=== PATIENT | female | born 1985 | race Hispanic/Latino ===

== ENCOUNTER 2019-10-14 06:27 | Day surgery (SDC) | payer BC ==
[2019-10-07 12:01] LABS: Absolute Lymphocytes (CBC) 2.2 K/uL (0.7-4.9); Basophils % 1.1 % (0-1.3); Hematocrit 37.4 % (36.0-45.0); Lymphocytes % 39.4 % (15.3-44.8); MPV 7.7 fL (7.6-11.3); RBC Red Blood Cell Count 4.04 M/uL (3.86-4.86)
[2019-10-07 12:03] LABS: Urine Appearance CLEAR; Urine Bilirubin NEGATIVE (NEG); Urine Blood NEGATIVE (NEG); Urine Color YELLOW; Urine Glucose NEGATIVE (NEG); Urine Protein NEGATIVE (NEG); Urine Urobilinogen 0.2 mg/dL (0.2-1.0); Urine pH 7.5 (5.0-7.0)
[2019-10-07 12:06] LABS: Urine Microscopic Reflex NO UMIC
[2019-10-14] MEDS ORDERED: SCOPOLAMINE HYDROBROMIDE PATCH TD ONE (06:45)
[2019-10-14] MEDS ORDERED: DIAZEPAM 5 MG TABLET ONE (06:45)
[2019-10-14] MEDS ORDERED: CEFAZOLIN/SWI 2gm 2 GM/20 ML SYR ONE (06:45)
[2019-10-14] MEDS ORDERED: Ringers Lactate 1,000 ML IV ONE ×3 (06:45→08:36)
[2019-10-14 07:00] LABS: Specific Gravity 1.025 (1.005-1.030)
[2019-10-14] MEDS ORDERED: BUPIVACAINE 0.25% PF 30 ML VIAL ONE (07:07)
[2019-10-14] MEDS ORDERED: ROCURONIUM 50 MG/5 ML VIAL IV ONE (07:09)
[2019-10-14] MEDS ORDERED: dexAMETHasone 10 MG/ML VIAL ONE (07:09)
[2019-10-14] MEDS ORDERED: propofoL 200 MG/20 ML VIAL IV ONE (07:09)
[2019-10-14] MEDS ORDERED: NS 0.9% VIAL 20 ML ONE (07:10)
[2019-10-14] MEDS ORDERED: LIDOCAINE 2% MPF 5 ML VIAL ONE (07:10)
[2019-10-14] MEDS ORDERED: FENTANYL CITR 250 MCG/5 ML ONE (07:10)
[2019-10-14] MEDS ORDERED: MIDAZOLAM HCL 2 MG/2 ML INJ ONE (07:10)
[2019-10-14] MEDS ORDERED: ONDANSETRON 4 MG/2 ML VIAL ONE (07:10)
[2019-10-14] MEDS ORDERED: VECURONIUM 10 MG/VIAL IV ONE (07:10)
[2019-10-14] MEDS ORDERED: MEPERIDINE HCL 25 MG/0.5 ML ONE (09:46)
[2019-10-14] MEDS ORDERED: KETOROLAC 30 MG/ML INJ ONE (09:56)
[2019-10-14] MEDS ORDERED: PROMETHAZINE INJ 25 MG/ML AMP ONE (10:47)
[2019-10-14] MEDS: HYDROMORPHONE HCL 1 MG/ML INJ ONE ×4 (10:51→11:10)
[2019-10-14 11:49] VITALS: O2SAT 99
[2019-10-14] MEDS ORDERED: HYDROCODONE/APAP 5/325 MG TAB PO ONE (12:00)
[2019-10-14] MEDS ORDERED: HYDROCODONE/APAP 5/325 MG TAB ONE (12:02)
[2019-10-14 14:56] VITALS: BP 110/65; TEMP 97
--- NOTE | 2019-10-15 04:17 | OP ---
Date of Procedure: 10/14/2019 Surgeon: Rica Schultz MD Electrical Tryout Person: Joy Sparks. Preoperative Diagnoses: Pelvic pain, recurrent menorrhagia. Postoperative Diagnoses: Pelvic pain, recurrent menorrhagia, and hematosalpinges, adhesions of the bladder. Anesthesia: General endotracheal. Estimated Blood Loss: Minimal. Specimens: Bilateral tubes and uterus with cervix. Complications: No complications. Drains: No drains. Condition: Stable. Findings: The proximal part of the tubes appeared to be slightly dilated. There were some adhesions to bowel that had to be taken down in order for me to complete the procedure in the left lower quadr ant, but once these were taken down with sharp dissection, no other abnormality encountered. Indications: Patient is a 33-year-old, who had pelvic pain and menorrhagia. She was evaluated with ultrasound biopsy. Patient with diagnosis of endometritis likely from the IUD. IUD was removed. No need for antibiotics as this did not appear to be an infectious process. GC testing was negative. Ablation versus hysterectomy were reviewed. Patient's age is 33. Other use of hormones was discusse d as well. However, patient was not wanting to do this. She had the IUD and her bleeding did not ge t better. We talked about an alternative of an ablation that will give us some more years; however, there is increased chance of recurrence since she already failed the IUD. We discussed the options o f laparoscopic hysterectomy and bilateral salpingectomy. She was definitive that she was done with c hildbearing and she also had her tubes tied. After listening to all the benefits and risks and alternatives, patient wanted to proceed with total laparoscopic hysterectomy, did not want to try depo or other medical treatment options or a repeat Mi jordana. Description Of Procedure: She was consented and brought to the OR. 2 g of Ancef was given in the pr eop. She was taken back to the OR, placed in supine fashion on the operating table. General anesthe emilia was given, she was placed in dorsal lithotomy position. Pelvic exam was performed. Uterus was f ound to be anteflexed. Abdomen, vulva, vagina, and perineum were prepped and draped in a sterile fashion. Isidro was placed to drain the bladder and attached to cysto tubing for retrograde filling. Then, 10 mm suprapubic and 5 mm left lower quadrant ports were placed under direct vision, and the peritoneal cavity was visual ized. Then, the bowel adhesions were seen in the left lower quadrant. All these were taken down wit h sharp dissection with scissors with good visualization. Then, after exposing all the distal part o f the tubes as well as the uterus itself, position of the ureters was checked. There was no anatomic al distortion of these. 5 mm left lower quadrant, 10 mm suprapubic ports were placed. Local anesthetic was given prior to pl acing these ports. Then, hysterectomy was started. The utero-ovarian ligament, mesosalpinx, tube, b road ligament, round ligament were all cut anterior and posteriorly. The broad ligament was separate d anterior to raise the bladder flap and posteriorly to the expose uterosacral ligament and at left u reter dissected off this side. Similar dissection was performed on the opposite side as well. Then, the vessels were skeletonized and taken down. vesicovaginal space was entered anteriorly and pushed with the bladder all the way inferiorly. Then, vessels were taken down on both sides using the bipo lar and then the LigaSure. Cardinal ligaments were also cauterized and taken down with the help of t he bipolar basket tip or the LigaSure itself. Circumferential colpotomy performed with the monopolar hook blade and the specimen was removed through the vagina. Distal parts of the tubes were dissecte d with the help of the LigaSure and retrieved as well. Thorough irrigation and suction were performe d. Both the ovaries appeared to be intact and vascular. No evidence of any endometriosis on close e xamination of the entire pelvic cavity and the bladder. Gas was desufflated after the trocars were r emoved under direct vision and fascia injected with Marcaine. Then, at the umbilicus as well, the ga s was desufflated. Umbilical port was removed and fascia closed with the help of the 0 Vicryl tag gomez tures sewn to each other and then suprapubic fascial incision closed with the help of [id number] 0 Vicryl stitch. All the skin incisions closed with interrupted 4-0 Vicryl. Instrument, needle, an d sponge counts were done and were correct at the end of the case. All the vaginal counts were done and were correct. She will follow up with me in 1 week. LETICIA/AIDA Voice ID: [id number] Report ID: [id number]
== END 2019-10-14 14:05 | disposition home or self-care (01) ==
LOC: OR 06:27
PROVIDERS: ATTEND Obstetrics & Gynecology
PROC: 0UT74ZZ Resection of Bilateral Fallopian Tubes, Percutaneous Endoscopic Approach (ICD-10-PCS; 2019-10-14)
PROC: 0UT94ZZ Resection of Uterus, Percutaneous Endoscopic Approach (ICD-10-PCS; principal; 2019-10-14 07:30)
DX: N92.1 Excessive and frequent menstruation with irregular cycle (principal); R10.2 Pelvic and perineal pain; N83.6 Hematosalpinx; F32.0 Major depressive disorder, single episode, mild
CPT/HCPCS: 85025; 36415; 86900; 86850; 81025; 86901; 88307; 81003; 58571; J2704; J2550; J2250; J3010; J1100; J2175; J1170 ×2; J0690; J7120 ×3; J2405

== ENCOUNTER 2020-01-19 06:22 | Emergency (ER) | payer BC, OTHER ==
[2020-01-19] MEDS ORDERED: DERMABOND SKIN ADHESIVE TOP ONE (06:49)
[2020-01-19] MEDS ORDERED: TETANUS & DIPHTHERIA TOX,ADULT 0.5 ML VIAL ONE (06:49)
[2020-01-19] MEDS ORDERED: LIDOCAINE VISCOUS 2% SOLN 15 ML UDC ONE (06:49)
[2020-01-19] MEDS ORDERED: LIDOCAINE JELLY 2%- 5 ML TUBE ONE (06:51)
--- NOTE | 2020-01-19 07:58 | RAD REPORT ---
EXAM DESCRIPTION: CT - Facial Bones W/ Mpr - 01/19/2020 7:08 am CLINICAL HISTORY: Facial injury status post fall with facial pain COMPARISON: None TECHNIQUE: Computed axial tomography of the face was obtained. Coronal and sagittal reconstruction w as performed. All CT scans are performed using dose optimization technique as appropriate and may include automated exposure control or mA/KV adjustment according to patient size. FINDINGS: A fracture is not seen. A TMJ dislocation is not noted. The globes are intact. Fluid within the sinuses is not seen. IMPRESSION: Negative for a facial fracture.
--- NOTE | 2020-01-19 08:02 | RAD REPORT ---
EXAM DESCRIPTION: CT - Head C Spine Mpr Wo Con - 01/19/2020 7:08 am CLINICAL HISTORY: Head and neck injury status post fall. Head and neck pain COMPARISON: None. TECHNIQUE: Computed axial tomography of the head and cervical spine was obtained. Sagittal and coronal reconstruction was performed. All CT scans are performed using dose optimization technique as appropriate and may include automated exposure control or mA/KV adjustment according to patient size. FINDINGS: An intracranial bleed is not seen. The ventricles are normal in caliber. An extra-axial fl uid collection is not noted.Fluid within the visualized sinuses and mastoids is not seen A cervical fracture is not visualized. No dislocation is noted. IMPRESSION: No acute intracranial abnormality is seen. A cervical fracture is not visualized. If the patient continues to have symptoms to suggest intracra nial /spinal cord pathology then MRI would be recommended
--- NOTE | 2020-01-19 08:08 | ER ---
Nurse's Notes [facility] Name: Fatou Velez Age: 34 yrs Sex: Female : 1985 Arrival Date: 01/19/2020 Time: 06:25 Bed 5 Private MD: Diagnosis: Fall on same level from slipping, tripping and stumbling with subsequent striking against object;Crushing injury of head;Laceration without foreign body of other part of head-chin Presentation: 01/18 06:35 Chief complaint: Patient states: tripped over toy on ground, hit chin on counter top, + lp1 LOC per ; Patient has laceration to bottom of chin, complaint of pain to lower jaw and headache;. Care prior to arrival: None. Mechanism of Injury: Fall from standing position. 06:35 Acuity: GLENIS 3 lp1 06:35 Method Of Arrival: Wheelchair lp1 06:37 Coronavirus screen: Patient denies fever greater than 100.4F, cough, shortness of lp1 breath, or difficulty breathing. Ebola Screen: No symptoms or risks identified at this time. Initial Sepsis Screen: Does the patient meet any 2 criteria? No. Patient's initial sepsis screen is negative. Does the patient have a suspected source of infection? No. Patient's initial sepsis screen is negative. Risk Assessment: Do you want to hurt yourself or someone else? Patient reports no desire to harm self or others. Onset of symptoms was January 19, 2020 at 05:30. 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 - Social history:: Smoking status: Patient denies any tobacco usage or history of. Screenin:39 Abuse screen: Denies threats or abuse. Denies injuries from another. Nutritional lp1 screening: No deficits noted. Tuberculosis screening: No symptoms or risk factors identified. Fall Risk None identified. Assessment: 06:39 General: Appears in no apparent distress. Behavior is calm, cooperative, appropriate lp1 for age. Pain: Complains of pain in right mandible and left mandible Pain currently is 6 out of 10 on a pain scale. Aggravated by repositioning. Neuro: Level of Consciousness is awake, alert, obeys commands, Oriented to person, place, time, situation, Reports headache. Cardiovascular: Patient's skin is warm and dry. Respiratory: Respiratory effort is even, unlabored. GI: No signs and/or symptoms were reported involving the gastrointestinal system. : No signs and/or symptoms were reported regarding the genitourinary system. EENT: No signs and/or symptoms were reported regarding the EENT system. Derm: Skin is pink, warm \T\ dry. Wound noted submental area Wound is Laceration to chin. Musculoskeletal: Circulation, motion, and sensation intact. Reports pain in right mandible and left mandible. Vital Signs: 06:37 BP 105 / 70; Pulse 77; Resp 16; Temp 97.6(TE); Pulse Ox 100% on R/A; Weight 70.31 kg lp1 (R); Height 5 ft. 3 in. (160.02 cm); Pain 6/10; 06:37 Body Mass Index 27.46 (70.31 kg, 160.02 cm) lp1 ED Course: 06:25 Patient arrived in ED. ds1 06:33 Devora Krishnan F[facility]C is [facility]. snw 06:33 Peyman Robert MD is Attending Physician. snw 06:34 Ayleen Torrez, MARIANO is Primary Nurse. lp1 06:37 Triage completed. lp1 06:38 Arm band placed on. lp1 06:39 Patient has correct armband on for positive identification. lp1 07:10 CT Head C Spine In Process Unspecified. EDMS 07:10 CT Facial Bones W/O Con In Process Unspecified. EDMS 08:31 Patient did not have IV access during this emergency room visit. 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 Exp: lp1 11/13/2021. Lot #: [id number]. } Route: IM; Site: right deltoid; 07:04 Drug: Lidocaine Gel 2 % 1 ea {Note: applied to laceration to chin.} Volume: 15 ml; lp1 Route: Mucous Membrane; Outcome: 08:08 Discharge ordered by MD. pascal 08:31 Discharged to home via wheelchair, with family. sv 08:31 Condition: stable 08:31 Discharge instructions given to patient, Instructed on discharge instructions, follow up and referral plans. wound care, Demonstrated understanding of instructions, follow-up care, wound care. 08:31 Patient left the ED. sv Signatures: Dispatcher [employer] Etta Garcia RN RN sv Devora Krishnan, PORCELAIN WAXER-C PORCELAIN WAXER-Csnw Shawna Chadwick ds1 Ayleen Torrez RN RN lp1 Corrections: (The following items were deleted from the chart) 07:04 06:37 BP 105 / 70; Pulse 77bpm; Resp 16bpm; Pulse Ox 100% RA; 70.31 kg Reported; Height lp1 5 ft. 3 in.; BMI: 27.4; Pain 6/10; lp1
--- NOTE | 2020-01-19 08:09 | EDPHYS ---
Physician Documentation [facility] Name: Fatou Velez Age: 34 yrs Sex: Female : 1985 Arrival Date: 01/19/2020 Time: 06:25 Bed 5 Private MD: ED Physician Peyman Robert HPI: 01/18 06:55 This 34 yrs old Female presents to ER via Wheelchair with complaints of snw Blacked Out, Fall Injury. 06:55 Onset: The symptoms/episode began/occurred just prior to arrival. Associated signs and snw symptoms: Pertinent positives: loss of consciousness. Associated signs and symptoms: Pertinent positives: laceration to chin. Modifying factors: The patient symptoms are alleviated by nothing. The patient has not experienced similar symptoms in the past. The patient has not recently seen a physician. Pt walking in the dark, tripped over a toy. Fell striking chin on countertop, + laceration. 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 - Social history:: Smoking status: Patient denies any tobacco usage or history of. ROS: 06:53 Constitutional: Negative for fever, chills, and weight loss, Eyes: Negative for injury, snw pain, redness, and discharge, ENT: Negative for injury, pain, and discharge, Neck: Negative for injury, pain, and swelling, Cardiovascular: Negative for chest pain, palpitations, and edema, Respiratory: Negative for shortness of breath, cough, wheezing, and pleuritic chest pain, Abdomen/GI: Negative for abdominal pain, nausea, vomiting, diarrhea, and constipation, Back: Negative for injury and pain, : Negative for injury, bleeding, discharge, and swelling, MS/Extremity: Negative for injury and deformity. 06:53 Skin: Positive for laceration(s), of the submental area. 06:53 Neuro: Positive for loss of consciousness. Exam: 06:46 Constitutional: This is a well developed, well nourished patient who is awake, alert, snw and in no acute distress. Head/Face: Normocephalic, traumatic laceration, irregular, 2.5cm to inferior chin, bleeding controlled. Bite normal, tender at mandibular condyles Eyes: Pupils equal round and reactive to light, extra-ocular motions intact. Lids and lashes normal. Conjunctiva and sclera are non-icteric and not injected. Cornea within normal limits. Periorbital areas with no swelling, redness, or edema. ENT: Nares patent. No nasal discharge, no septal abnormalities noted. Tympanic membranes are normal and external auditory canals are clear. Oropharynx with no redness, swelling, or masses, exudates, or evidence of obstruction, uvula midline. Mucous membranes moist. Neck: Trachea midline, no thyromegaly or masses palpated, and no cervical lymphadenopathy. Supple, full range of motion without nuchal rigidity, or vertebral point tenderness. No Meningismus. Chest/axilla: Normal chest wall appearance and motion. Nontender with no deformity. No lesions are appreciated. Cardiovascular: Regular rate and rhythm with a normal S1 and S2. No gallops, murmurs, or rubs. Normal PMI, no JVD. No pulse deficits. Respiratory: Lungs have equal breath sounds bilaterally, clear to auscultation and percussion. No rales, rhonchi or wheezes noted. No increased work of breathing, no retractions or nasal flaring. Abdomen/GI: Soft, non-tender, with normal bowel sounds. No distension or tympany. No guarding or rebound. No evidence of tenderness throughout. Back: No spinal tenderness. No costovertebral tenderness. Full range of motion. Skin: Warm, dry with normal turgor. Normal color with no rashes, no lesions, and no evidence of cellulitis. MS/ Extremity: Pulses equal, no cyanosis. Neurovascular intact. Full, normal range of motion. Psych: Awake, alert, with orientation to person, place and time. Behavior, mood, and affect are within normal limits. 06:46 Neuro: Orientation: is normal, Mentation: is normal, Memory: is normal. Vital Signs: 06:37 BP 105 / 70; Pulse 77; Resp 16; Temp 97.6(TE); Pulse Ox 100% on R/A; Weight 70.31 kg lp1 (R); Height 5 ft. 3 in. (160.02 cm); Pain 6/10; 06:37 Body Mass Index 27.46 (70.31 kg, 160.02 cm) lp1 Laceration: 07:28 Wound Repair of 3cm ( 1.2in ) subcutaneous laceration to submental area. Irregularly snw shaped.. Distal neuro/vascular/tendon intact. Anesthesia: topical lido with 0 mls of 1% lidocaine. Wound prep: Simple cleansing with hibiclenz by me. Skin closed with 2 5-0 Prolene using simple sutures and sterile technique. Dressed with none. Patient tolerated well. MDM: 06:39 Patient medically screened. snw 08:24 Data reviewed: vital signs, nurses notes. Data interpreted: Pulse oximetry: on room air snw is 100 %. Interpretation: normal. Counseling: I had a detailed discussion with the patient and/or guardian regarding: the historical points, exam findings, and any diagnostic results supporting the discharge/admit diagnosis, radiology results, the need for outpatient follow up, to return to the emergency department if symptoms worsen or persist or if there are any questions or concerns that arise at home. Response to treatment: the patient's symptoms have markedly improved after treatment. Special discussion: Based on the patient's history, exam and DX evaluation, there is no indication for emergent intervention or inpatient TX. It is understood by the patient/guardian that if the SXs persist or worsen they need to return immediately for re-evaluation. Based on the history and exam findings, there is no indication for further emergent testing or inpatient evaluation. I discussed with the patient/guardian the need to see the primary care provider for further evaluation of the symptoms. 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 Exp: lp1 11/13/2021. Lot #: [id number]. } Route: IM; Site: right deltoid; 07:04 Drug: Lidocaine Gel 2 % 1 ea {Note: applied to laceration to chin.} Volume: 15 ml; lp1 Route: Mucous Membrane; Disposition: :07 Co-signature as Attending Physician, Peyman Robert MD. sabas Disposition: 01/19/20 08:08 Discharged to Home. Impression: Fall on same level from slipping, tripping and stumbling with subsequent striking against object, Crushing injury of head, Laceration without foreign body of other part of head - chin. - Condition is Stable. - Discharge Instructions: Head Injury, Adult, Fall Prevention in the Home, Laceration Care, Adult, Facial Laceration, Suture Removal, Care After. - Medication Reconciliation Form, Thank You Letter, Antibiotic Education, Prescription Opioid Use form. - Follow up: Emergency Department; When: As needed; Reason: Worsening of condition. Follow up: Private Physician; When: 5 - 6 days; Reason: Staple/Suture removal. Signatures: Dispatcher [employer] Etta Garcia, RN Peyman Rojas MD MD pkl Therrien, Shelly, AGED OR DISABLED CARER-C AGED OR DISABLED CARER-Csnw Ayleen Torrez RN RN lp1 Corrections: (The following items were deleted from the chart) 06:55 06:46 Constitutional: This is a well developed, well nourished patient who is awake, snw alert, and in no acute distress. Head/Face: Normocephalic, traumatic laceration, irregular, 2.5cm to inferior chin, bleeding controlled. Bite normal, tender at mandibular condyles Eyes: Pupils equal round and reactive to light, extra-ocular motions intact. Lids and lashes normal. Conjunctiva and sclera are non-icteric and not injected. Cornea within normal limits. Periorbital areas with no swelling, redness, or edema. ENT: Nares patent. No nasal discharge, no septal abnormalities noted. Tympanic membranes are normal and external auditory canals are clear. Oropharynx with no redness, swelling, or masses, exudates, or evidence of obstruction, uvula midline. Mucous membranes moist. Neck: Trachea midline, no thyromegaly or masses palpated, and no cervical lymphadenopathy. Supple, full range of motion without nuchal rigidity, or vertebral point tenderness. No Meningismus. Chest/axilla: Normal chest wall appearance and motion. Nontender with no deformity. No lesions are appreciated. Cardiovascular: Regular rate and rhythm with a normal S1 and S2. No gallops, murmurs, or rubs. Normal PMI, no JVD. No pulse deficits. Respiratory: Lungs have equal breath sounds bilaterally, clear to auscultation and percussion. No rales, rhonchi or wheezes noted. No increased work of breathing, no retractions or nasal flaring. Abdomen/GI: Soft, non-tender, with normal bowel sounds. No distension or tympany. No guarding or rebound. No evidence of tenderness throughout. Back: No spinal tenderness. No costovertebral tenderness. Full range of motion. Skin: Warm, dry with normal turgor. Normal color with no rashes, no lesions, and no evidence of cellulitis. MS/ Extremity: Pulses equal, no cyanosis. Neurovascular intact. Full, normal range of motion. Psych: Awake, alert, with orientation to person, place and time. Behavior, mood, and affect are within normal limits. snw 06:55 06:46 Neuro: Orientation: is normal, Mentation: is normal, Memory: is normal, snw snw 07:06 06:37 Facial Bones W/ MPR+CT.RAD.BRZ ordered. EDMS EDMS 07:06 06:37 Head C Spine MPR Wo Con+CT.RAD.BRZ ordered. EDMS EDMS 08:31 08:08 01/19/2020 08:08 Discharged to Home. Impression: Fall on same level from sv slipping, tripping and stumbling with subsequent striking against object; Crushing injury of head; Laceration without foreign body of other part of head - chin. Condition is Stable. Discharge Instructions: Head Injury, Adult, Fall Prevention in the Home, Laceration Care, Adult, Facial Laceration, Suture Removal, Care After. Forms are Medication Reconciliation Form, Thank You Letter, Antibiotic Education, Prescription Opioid Use. Follow up: Emergency Department; When: As needed; Reason: Worsening of condition. Follow up: Private Physician; When: 5 - 6 days; Reason: Staple/Suture removal. snw
[2020-01-19] MEDS ORDERED: LIDOCAINE 1% MPF 30 ML VIAL ONE (08:39)
[2020-01-19 08:46] VITALS: BP 105/70; TEMP 97.6; O2SAT 100
== END 2020-01-19 08:31 | disposition home or self-care (01) ==
LOC: ER 06:22
PROC: 0JQ10ZZ Repair Face Subcutaneous Tissue and Fascia, Open Approach (ICD-10-PCS; principal; 2020-01-19)
DX: S01.81XA Laceration without foreign body of other part of head, initial encounter (principal); W01.198A Fall on same level from slipping, tripping and stumbling with subsequent striking against other object, initial encounter; Y93.01 Activity, walking, marching and hiking; Y92.9 Unspecified place or not applicable; F41.9 Anxiety disorder, unspecified; Z88.5 Allergy status to narcotic agent; Z23 Encounter for immunization
CPT/HCPCS: 70450; 70486; 72125; 76377; 90471; 90714; 99283